=== PATIENT | male | born 1955 ===

== ENCOUNTER 2018-10-27 08:11 | Emergency (ER) | payer BC ==
--- NOTE | 2018-10-27 08:15 | UC ---
Throat Pain/Nasal Tez HPI - HPI Summary HPI Summary: 63-year-old male who has had a sore throat for approximately 5 days. - History of Current Complaint Chief Complaint: UCRespiratory Stated Complaint: THROAT PAIN Time Seen by Provider: 10/27/18 08:15 Hx Obtained From: Patient Onset/Duration: Gradual Onset Severity: Mild Associated Signs & Symptoms: Positive: Negative Related History: Seasonal Allergies - Allergies/Home Medications Allergies/Adverse Reactions: Allergies Allergy/AdvReac Type Severity Reaction Status Date / Time No Known Allergies Allergy Verified 10/27/18 08:17 Home Medications: Home Medications Hydrochlorothiazide TAB* [Hydrodiuril TAB*] 25 mg PO DAILY 10/27/18 [History Confirmed 10/27/18] PMH/Surg Hx/FS Hx/Imm Hx Previously Healthy: Yes Cardiovascular History: Hypertension - Family History Known Family History: Positive: Non-Contributory - Social History Lives: With Family Alcohol Use: None Substance Use Type: None Review of Systems All Other Systems Reviewed And Are Negative: Yes ENT: Positive: Sore Throat Is Patient Immunocompromised?: No Physical Exam Triage Information Reviewed: Yes Appearance: Well-Appearing, No Pain Distress, Well-Nourished Vital Signs Reviewed: Yes Eyes: Positive: Conjunctiva Clear ENT: Positive: Hearing grossly normal, Pharyngeal erythema, TMs normal, Uvula midline. Negative: Tonsillar swelling, Tonsillar exudate, Trismus, Muffled voice, Hoarse voice Neck: Positive: Supple, Nontender, No Lymphadenopathy Respiratory: Positive: Lungs clear, Normal breath sounds, No respiratory distress, No accessory muscle use Cardiovascular: Positive: RRR, No Murmur, Pulses Normal, Brisk Capillary Refill Musculoskeletal Exam: Normal Neurological Exam: Normal Psychological Exam: Normal Skin Exam: Normal Throat Pain/Nasal Course/Dx - Course Course Of Treatment: Rapid strep test was negative. The patient is comfortable here. I'm going to give her magic mouthwash to use and follow-up with his primary care provider in 3 or 4 days if no improvement or if worsening symptoms. - Differential Dx/Diagnosis Provider Diagnosis: Pharyngitis Discharge - Sign-Out/Discharge Documenting (check all that apply): Patient Departure All imaging exams completed and their final reports reviewed: No Studies - Discharge Plan Condition: Fair Disposition: HOME Prescriptions: Magic Mouth Was-CAROL/MAAL/LIDO* 5 ml SWISH SPIT QID PRN #100 ml PRN Reason: Pain - Mild Patient Education Materials: Pharyngitis (ED) Referrals: Eileen Perez MD [Primary Care Provider] - Additional Instructions: Increase fluids, may take Tylenol every 4 hours and Motrin every 8 hours for pain. Use the Magic mouthwash to gargle and spit 4 times a day. Follow-up with your primary care provider in approximately 3 or 4 days if no improvement. - Billing Disposition and Condition Condition: FAIR Disposition: Home - Attestation Statements Provider Attestation: I was available for consult. This patient was seen by the TYLER. The patient was not presented to , seen by or examined by wa -Alexia Charles MD
[2018-10-27 08:17] VITALS: BP 139/96
== END 2018-10-27 08:51 | disposition home or self-care (01) ==
LOC: UCEAST 08:11
DX: J02.9 Acute pharyngitis, unspecified (principal); I10 Essential (primary) hypertension
CPT/HCPCS: 87651; 99212; G0463

== ENCOUNTER 2018-11-15 11:48 | Emergency (ER) | payer BC, MEDICAID ==
--- NOTE | 2018-11-15 12:43 | ED ---
Lower Extremity - HPI Summary HPI Summary: This pt is a 63 Y/O presenting to [facility] with a CC of L foot edema and pain, worse on his L great toe, rated an 8/10 in severity and present since 11/06/18. The pt states that the pain and edema began intermittently, but since 11/10/18, it has been constant, erythematous, and worsened in severity. He states that the erythema is spreading to the rest of his foot, and he has been unable to sleep d/t the pain. He denies N/V, CP, SOB, fevers, chills, and headaches. He states that standing, movement, and palpitations aggravate his sx, and that IBU has little effect. He has PMHx of HTN. He states that he does not smoke cigarettes or use illicit drugs, but he does occasionally drink. Pt's medications reviewed, allergies noted. - History of Current Complaint Chief Complaint: EDExtremityLower Stated Complaint: LEFT FOOT INJURY PER PT Time Seen by Provider: 11/15/18 12:32 Hx Obtained From: Patient Mechanism Of Injury: Unknown Onset of Pain: Immediate Onset/Duration: Worse Since - 11/10/18 Severity Initially: Moderate Severity Currently: Severe Pain Intensity: 8 Pain Scale Used: 0-10 Numeric Timing: Constant - after 11/10/18, Intermittent - before 11/10/18 Location: Is Discrete @ - L foot, worse at L great toe Associated Signs And Symptoms: Positive: Negative - N/V, CP, SOB, chills, and headaches, Swelling, Redness. Negative: Fever Aggravating Factor(s): Standing, Ambulation, Movement Alleviating Factor(s): Nothing - Allergies/Home Medications Allergies/Adverse Reactions: Allergies Allergy/AdvReac Type Severity Reaction Status Date / Time No Known Allergies Allergy Verified 11/21/18 10:43 PMH/Surg Hx/FS Hx/Imm Hx Previously Healthy: Yes Endocrine/Hematology History: Denies: Hx Diabetes Cardiovascular History: Reports: Hx Hypertension Respiratory History: Denies: Hx Asthma Sensory History: Reports: Hx Contacts or Glasses Opthamlomology History: Reports: Hx Contacts or Glasses Infectious Disease History: No Infectious Disease History: Denies: Traveled Outside the [place] in Last 30 Days - Family History Known Family History: Positive: Hypertension - Social History Occupation: Employed Full-time Lives: With Family Alcohol Use: Weekly Hx Substance Use: No Substance Use Type: Reports: None Hx Tobacco Use: Yes Smoking Status (MU): Former Smoker Review of Systems Negative: Fever, Chills Negative: Chest Pain Negative: Shortness Of Breath Negative: Vomiting, Nausea Positive: Other - L foot pain Skin: Other - L great toe is swollen, erythematous Negative: Headache All Other Systems Reviewed And Are Negative: Yes Physical Exam - Summary Physical Exam Summary: Constitutional: Well-developed, Well-nourished, Alert. (-) Distressed Skin: Warm, Dry, L great toe is swollen erythematous and warm HENT: Normocephalic; Atraumatic Eyes: Conjunctiva normal Neck: Musculoskeletal ROM normal neck. (-) JVD, (-) Stridor, (-) Tracheal deviation Cardio: Rhythm regular, rate normal, Heart sounds normal; Intact distal pulses; The pedal pulses are 2+ and symmetric. Radial pulses are 2+ and symmetric. (-) Murmur Pulmonary/Chest wall: Effort normal. (-) Respiratory distress, (-) Wheezes, (-) Rales Abd: Soft, (-) tenderness, (-) Distension, (-) Guarding, (-) Rebound Musculoskeletal: (-) Edema, pt able to move to in a limited range of motion. Passive movement causes pain Lymph: (-) Cervical adenopathy Neuro: Alert, Oriented x3 Psych: Mood and affect Normal Triage Information Reviewed: Yes Vital Signs On Initial Exam: Initial Vitals Temp Pulse Resp BP Pulse Ox 99.6 F 109 16 174/109 98 11/15/18 11:50 11/15/18 11:50 11/15/18 11:50 11/15/18 11:50 11/15/18 11:50 Vital Signs Reviewed: Yes Diagnostics - Vital Signs Vital Signs Temp Pulse Resp BP Pulse Ox 11/15/18 11:50 99.6 F 109 16 174/109 98 - Laboratory Result Diagrams: 11/15/18 12:53 11/15/18 12:53 Lab Statement: Any lab studies that have been ordered have been reviewed, and results considered in the medical decision making process. Re-Evaluation - Re-Evaluation 1st re-eval Re-Evaluation Time: 16:00 Change: Unchanged Comment: Dr. River stopped by, stated that believes it is probably gout. If the pt's pain resolves within the next 30 minutes with the Toradol, he can be d/ c'ed. 2nd re-eval Re-Evaluation Time: 16:26 Change: Improved Comment: Pt feels much better after Toradol and will be d/c'ed home. Lower Extremity Course/Dx - Course Course Of Treatment: Patient is here with great toe pain. Patient had mildly elevated inflammatory markers so exerted is counseled. They do not believe this represents septic arthritis. Patient was given a shot of Toradol with improvement in symptoms. - Diagnoses Provider Diagnoses: Gout Discharge ED - Sign-Out/Discharge Documenting (check all that apply): Patient Departure Patient Received Moderate/Deep Sedation with Procedure: No - Discharge Plan Condition: Stable Disposition: HOME Prescriptions: Ibuprofen TAB* [Motrin TAB* 600 MG] 600 mg PO Q6H PRN #30 tab PRN Reason: Pain - Moderate methylPREDNISolone [Medrol] 4 mg PO .SEE SUN INSTRUCTION #1 tab.ds.[id number] Patient Education Materials: Gout (ED) Referrals: [facility] [Outside] Additional Instructions: Please take your prescribed medications as instructed. Follow up with your primary care provider within the next week. Return to the emergency department with any new or worsening symptoms. - Billing Disposition and Condition Condition: STABLE Disposition: Home - Attestation Statements Document Initiated by Rachel: Yes Documenting Edgaribe: Rafael Lerma Provider For Whom Rachel is Documenting (Include Credential): Chris Lafleur MD Scribe Attestation: Rafael Davalos, scribed for Chris Lafleur MD on 11/22/18 at 2152. Scribe Documentation Reviewed: Yes Provider Attestation: The documentation as recorded by the Rafael bowers accurately reflects the service I personally performed and the decisions made by me, Chris Lafleur MD Status of Scribe Document: Viewed Consult Consult: 1500 - I spoke with Dr. River who states he will be coming down to see the patient.
[2018-11-15 13:04] LABS: ABS Eosinophils 0.2 10^3/ul (0-0.6); ABS Lymphocytes 0.9 10^3/ul (1.0-4.8); ABS Monocytes 0.7 10^3/ul (0-0.8); ABS Neutrophils 5.2 10^3/ul (1.5-7.7); Hematocrit 43 % (42-52); Lymphocyte % 12.9 %; Mean Corpuscular HGB Conc 35 g/dL (31-36); Mean Corpuscular Hemoglobin 30 pg (27-31); Mean Corpuscular Volume 87 fL (80-94); Mean Platelet Volume 7.7 fL (7.4-10.4); Platelet Count 269 10^3/uL (150-450); Red Cell Distribution Width 13 % (10-15); White Blood Count 7.1 10^3/uL (3.5-10.8)
[2018-11-15 13:24] LABS: Albumin 3.9 g/dL (3.2-5.2); Albumin/Globulin Ratio 1.1 (1-3); BUN/Creatinine Ratio 17.3 (8-20); C Reactive Protein 33.13 mg/L (<8.01); EGFR African American 128.1 (>60); EGFR Non-African American 105.9 (>60); Globulin 3.4 g/dL (2-4); Potassium 3.2 mmol/L (3.5-5.0); Total Bilirubin 0.6 mg/dL (0.2-1.0); Total Protein 7.3 g/dL (6.4-8.9); Uric Acid 5.8 mg/dL (4.4-7.6)
[2018-11-15 14:40] LABS: Erythrocyte Sed Rate 45 mm/Hr (0-19)
[2018-11-15] MEDS ORDERED: Ketorolac *IM* INJ* 60 MG/2 ML VIAL IM ONE (15:01)
[2018-11-15 16:48] VITALS: BP 168/95
--- NOTE | 2018-11-15 17:41 | CONS ---
CONSULTATION REPORT: DATE OF CONSULT: 11/15/18 REASON FOR CONSULT: Left great toe pain and swelling, possible infection. HISTORY OF PRESENT ILLNESS: The patient is a 63-year-old man, with no prior history of gout or foot infection, who presents with pain about the left great toe for the past 9 days since 11/06/18. There was no antecedent trauma. No prior history of similar symptoms in either foot. Pain and swelling started about the left great toe MTP joint. This worsened over time and has been m ore constant and severe over the last 5 days since 11/10/18. The patient noted some erythema of the skin spreading to other parts of the foot. Increased pain. Th e patient has been taking ibuprofen with little benefit. The patient denies any recent fevers, sweats, chills. I was called by the emergency department about this patient. It sounded as if it was likely to be go ut. I requested that Toradol 60 mg IV or IM be provided to the patient and instructed that I will be down to examine him shortly. PAST MEDICAL HISTORY: Hypertension, corrective lenses. PAST SURGICAL HISTORY: None. MEDICATIONS: None. ALLERGIES: No known drug allergies. FAMILY HISTORY: Noncontributory. Positive for hypertension. SOCIAL HISTORY: The patient is employed full-time. Lives with family. Uses alcohol. Former smoker . REVIEW OF SYSTEMS: No recent fevers, sweats, chills. Full review of systems was negative for sympto ms other than left great toe swelling, pain, skin erythema. No numbness or tingling. PHYSICAL EXAM: Vital Signs: Body temperature 99.2 degrees Fahrenheit. T-max is 99.6 degrees earlie r today. Pulse rate 97, blood pressure 168/95, respiratory rate 16, and an oxygen saturation 99% on room air. No acute distress, nontoxic appearing. Alert and oriented. Appropriate mood and affect, appropriate dress and hygiene. Well-coordinated bilateral upper and lower extremities. Left foot exam was performed when I first met the patient. The Toradol had still not been given to t he patient. I was able to range the patient within at least a 30 or 40-degree arc of motion without any significant discomfort. The discomfort was inconsistent. The patient had some [id number] soft tissue swelling and tenderness about the great toe MTP joint. Neurovascularly intact distally. No significant erythema of the skin afar from the MTP joint. DIAGNOSTIC STUDIES/LAB DATA: White blood cell count 7.1, neutrophil count of 74%, ESR 45, and CRP 33 . Imaging: Views themselves were not accessible by this computer. Foot x-rays were reviewed by Dr. Darlyn montes and read as demonstrating evidence of first or great toe MTP joint osteoarthritis. ASSESSMENT: 1. Likely left great toe gout, podagra. 2. Left great toe metatarsophalangeal joint osteoarthritis. PLAN: 1. I returned to the patient after the Toradol intramuscular 60 mg had finally been administered. A pproximately one-half hour later, the patient told the emergency room staff that he had no pain whats oever in the left great toe. I reexamined the patient and I was able to extend and flex the great to e at least 30 degrees in each direction without any pain whatsoever. This made for a 60-degree pain- free arc of range of motion. In this setting, there was no chance of infection in this joint. There fore, no aspiration was required to confirm. 2. The patient may have underlying left great toe MTP joint osteoarthritis, but given the skin eryth joi and the significant swelling about the joint, this was clearly gout rather than an osteoarthritic flare. 3. The emergency department discharged the patient home with a Medrol Dosepak and ibuprofen with ins tructions to take those. I clarified that the patient should not take both simultaneously and should take a Medrol Dosepak for the next 6 days followed by naproxen as needed after that if he is still s ymptomatic. 4. The patient is welcome to follow up with me in clinic or with his primary care physician. I spok e to him a little about the diagnosis of gout and how repeated flares can sometimes occur. [id number]/[id number] #: [id number]
== END 2018-11-15 16:46 | disposition home or self-care (01) ==
LOC: ED 11:48 → MERGE 11:48 → ED 16:46
DX: M10.9 Gout, unspecified (principal); M19.072 Primary osteoarthritis, left ankle and foot; I10 Essential (primary) hypertension; Z87.891 Personal history of nicotine dependence
CPT/HCPCS: 36415; 80053; 84550; 85025; 85652; 86140; 96372; 99282; J1885